=== PATIENT | female | born 1955 ===

== ENCOUNTER → 2018-07-26 14:39 | Outpatient (REF) | payer OTHER, SELFPAY | LOC: LAB 14:39 | PROVIDERS: Visit Provider Student in an Organized Health Care Education/Training Program | DX: J30.9 Allergic rhinitis, unspecified (principal) | CPT/HCPCS: 87070; 87077; 87186 ==

== ENCOUNTER → 2018-08-10 16:02 | Outpatient (REF) | payer OTHER, SELFPAY | LOC: LAB 16:02 | PROVIDERS: Visit Provider Student in an Organized Health Care Education/Training Program | DX: J34.2 Deviated nasal septum (principal); J32.9 Chronic sinusitis, unspecified; J33.9 Nasal polyp, unspecified | CPT/HCPCS: 87070 ==